=== PATIENT | male | born 1955 | race Two or more races ===

== ENCOUNTER 2019-05-12 09:51 | Emergency (ER) | payer MEDICARE, MEDICAID ==
[~2019-05-12] VITALS: Ht 180.3 cm; Wt 72.6 kg
[2019-05-12] MEDS ORDERED: cloNIDine HCL 0.1 MG TAB ONE (10:08)
[2019-05-12] MEDS ORDERED: cloNIDine HCL 0.1 MG TAB PO ONE (10:15)
[2019-05-12 10:21] VITALS: BP 179/91
[2019-05-12] MEDS ORDERED: HYDROmorphone HCL 2 MG/ML VL IM ONE (10:45)
[2019-05-12] MEDS ORDERED: ONDANSETRON ODT 4 MG TAB PO ONE (10:45)
== END 2019-05-12 13:00 | disposition home or self-care (01) ==
LOC: ER 09:51
DX: S42.201A Unspecified fracture of upper end of right humerus, initial encounter for closed fracture (principal); F17.210 Nicotine dependence, cigarettes, uncomplicated; W00.0XXA Fall on same level due to ice and snow, initial encounter; Y93.89 Activity, other specified; Y92.89 Other specified places as the place of occurrence of the external cause; Y99.8 Other external cause status
CPT/HCPCS: 29105; 73030; 73080; 96372; 99283; J1170; Q0162

== ENCOUNTER 2019-05-16 11:17 | Emergency (ER) | payer MEDICARE, MEDICAID ==
[~2019-05-16] VITALS: Ht 180.3 cm; Wt 72.6 kg
[2019-05-16 11:28] VITALS: BP 156/104
== END 2019-05-16 14:43 | disposition home or self-care (01) ==
LOC: ER 11:27
DX: M79.601 Pain in right arm (principal); Z76.0 Encounter for issue of repeat prescription; F17.210 Nicotine dependence, cigarettes, uncomplicated

== ENCOUNTER 2021-03-08 11:28 | Emergency (ER) | payer MEDICARE, MEDICAID ==
[~2021-03-08] VITALS: Ht 180.3 cm; Wt 72.6 kg
[2021-03-08] MEDS ORDERED: KETOROLAC TROMETH 60MG/2ML VIAL IM ONE (12:30)
[2021-03-08 12:45] VITALS: BP 141/84
== END 2021-03-08 13:15 | disposition home or self-care (01) ==
LOC: ER 11:28
DX: M51.35 Other intervertebral disc degeneration, thoracolumbar region (principal); G89.29 Other chronic pain; M54.50 Low back pain, unspecified; K21.9 Gastro-esophageal reflux disease without esophagitis; F17.210 Nicotine dependence, cigarettes, uncomplicated
CPT/HCPCS: 72070; 96372; 99283; J1885

== ENCOUNTER 2023-06-19 08:48 | Emergency (ER) | payer MEDICARE, MEDICAID ==
[~2023-06-19] VITALS: Ht 180.3 cm; Wt 79.0 kg
[2023-06-19 09:12] VITALS: PULSE 96; RESP 20; O2SAT 98
[2023-06-19] MEDS ORDERED: LIDOCAINE 2% JELLY 11ml (GLYDO) UR ONE (09:15)
[2023-06-19 10:02] LABS: Chloride 98 mmol/L (98-107); Potassium 3.7 mmol/L (3.5-5.1); Sodium 130 mmol/L (136-145)
[2023-06-19 10:03] LABS: Anion Gap 8 (5-15); Carbon Dioxide 24 mmol/L (20-30)
[2023-06-19 10:04] LABS: Calcium 9.1 mg/dL (8.5-10.1)
[2023-06-19 10:08] LABS: Glucose 108 mg/dL (74-106)
[2023-06-19 10:09] LABS: Basophils # (auto) 0 10 ^3/uL (0-0.2); Basophils % (auto) 0.2 % (0.0-2.0); Blood Urea Nitrogen 6 mg/dL (9-23); Eosinophils # (auto) 0 10 ^3/uL (0-0.8); Hematocrit 48.2 % (41.0-53.0); Hemoglobin 16.8 g/dL (13.5-17.5); Lymphocytes # (auto) 0.8 10 ^3/uL (0.4-5.4); Lymphocytes % (auto) 8.4 % (10.0-50.0); Mean Corpuscular Hemoglobin 32.8 pg (28.0-32.0); Mean Corpuscular Hgb Conc. 34.8 g/dL (32.0-36.0); Mean Corpuscular Volume 94.2 fL (80.0-100.0); Monocytes # (auto) 0.5 10 ^3/uL (0-1.3); Monocytes % (auto) 4.9 % (0.0-12.0); Neutrophils # (auto) 8.1 10 ^3/uL (1.6-8.6); Neutrophils % (auto) 86.5 % (37.0-80.0); Nucleated Red Blood Cells % 0.1 %; Red Blood Cells 5.12 10^6/uL (4.5-5.90); Red Cell Distribution Width 14.4 % (11.8-14.3); White Blood Cell 9.3 10^3/uL (4.4-10.8)
[2023-06-19 10:53] LABS: Urine Bacteria NONE SEEN /hpf (None Seen); Urine Blood TRACE /uL (Negative); Urine Budding Yeast MODERATE /hpf (None Seen); Urine Clarity Clear (Clear); Urine Color Yellow (Yellow); Urine Protein, UAD Negative (Negative); Urine Specific Gravity 1.011 (1.001-1.035); Urine Urobilinogen Normal (Negative); Urine WBC 34 /hpf (0 - 3); Urine pH 6.5 (5.0-8.0)
[2023-06-19] MEDS ORDERED: CEPH250C PO (11:12)
[2023-06-19] MEDS ORDERED: cefTRIAXone 1GM/50ML D5W 50 ML IV ONE (11:15)
[2023-06-19 12:47] VITALS: TEMP 98.7
[2023-06-19 14:02] VITALS: BP 153/88; PULSE 75; RESP 16; O2SAT 97
== END 2023-06-19 14:18 | disposition home or self-care (01) ==
LOC: ER 08:48
DX: N39.0 Urinary tract infection, site not specified (principal); R33.9 Retention of urine, unspecified; I10 Essential (primary) hypertension; K21.9 Gastro-esophageal reflux disease without esophagitis; E11.9 Type 2 diabetes mellitus without complications
CPT/HCPCS: 36415; 51702; 80048; 81001; 85025; 96365; 99285; J0696

== ENCOUNTER 2023-06-26 08:28 | Emergency (ER) | payer MEDICARE, MEDICAID ==
[~2023-06-26] VITALS: Ht 180.3 cm; Wt 69.6 kg
[~2023-06-26 08:28] MED LIST: CEPH250C PO
[2023-06-26 09:08] VITALS: BP 106/73; PULSE 74; RESP 16; TEMP 97.1; O2SAT 100
[2023-06-26] MEDS: LIDOCAINE 2% JELLY 11ml (GLYDO) UR ONE (09:33)
== END 2023-06-26 09:57 | disposition home or self-care (01) ==
LOC: ER 08:28
DX: T83.091A Other mechanical complication of indwelling urethral catheter, initial encounter (principal); I10 Essential (primary) hypertension; E11.9 Type 2 diabetes mellitus without complications; K21.9 Gastro-esophageal reflux disease without esophagitis; F17.210 Nicotine dependence, cigarettes, uncomplicated; Z79.899 Other long term (current) drug therapy
CPT/HCPCS: 51702

== ENCOUNTER 2023-07-23 04:39 | Emergency (ER) | payer MEDICARE, MEDICAID ==
[~2023-07-23] VITALS: Ht 180.3 cm; Wt 71.0 kg
[2023-07-23 07:28] LABS: Urine Bacteria FEW /hpf (None Seen); Urine Blood 1+ /uL (Negative); Urine Clarity Clear (Clear); Urine Color Yellow (Yellow); Urine Protein, UAD Negative (Negative); Urine Specific Gravity 1.014 (1.001-1.035); Urine Sperm PRESENT /hpf (None Seen); Urine Urobilinogen Normal (Negative); Urine WBC 21 /hpf (0 - 3); Urine pH 6.5 (5.0-8.0)
[2023-07-23] MEDS ORDERED: CIPR-173 PO (07:31)
[2023-07-23 07:41] VITALS: BP 120/75; PULSE 68; RESP 18; TEMP 97; O2SAT 98
== END 2023-07-23 08:05 | disposition home or self-care (01) ==
LOC: ER 04:39
DX: N39.0 Urinary tract infection, site not specified (principal); R33.9 Retention of urine, unspecified; E11.9 Type 2 diabetes mellitus without complications; K21.9 Gastro-esophageal reflux disease without esophagitis; I10 Essential (primary) hypertension; Z46.6 Encounter for fitting and adjustment of urinary device; Z87.891 Personal history of nicotine dependence
CPT/HCPCS: 51702; 81001

== ENCOUNTER 2023-09-07 17:43 | Emergency (ER) | payer MEDICARE, MEDICAID ==
[~2023-09-07] VITALS: Ht 180.3 cm; Wt 68.5 kg
[~2023-09-07 17:43] MED LIST changes: +CIPR-173 PO
[2023-09-07 18:00] VITALS: TEMP 99.1
[2023-09-07 22:39] LABS: Urine Bacteria None Seen /hpf (None Seen)
[2023-09-07 23:07] LABS: Urine Blood 3+ /uL (Negative); Urine Clarity Ex.Turbid (Clear); Urine Color Light-Red (Yellow); Urine Protein, UAD 2+ (Negative); Urine Specific Gravity 1.015 (1.001-1.035); Urine Urobilinogen Normal (Negative); Urine WBC 288 /hpf (0 - 3); Urine WBC Clumps PRESENT /hpf (None Seen); Urine pH 6.5 (5.0-9.0)
[2023-09-07] MEDS ORDERED: BACDST PO (23:14)
[2023-09-07] MEDS: cefTRIAXone SOD 1,000 MG VL IM ONE (23:34)
[2023-09-07 23:45] VITALS: BP 130/72; PULSE 80; RESP 18; O2SAT 97
== END 2023-09-07 23:51 | disposition home or self-care (01) ==
LOC: ER 17:43
DX: T83.098A Other mechanical complication of other urinary catheter, initial encounter (principal); N40.1 Benign prostatic hyperplasia with lower urinary tract symptoms; R33.8 Other retention of urine; E11.9 Type 2 diabetes mellitus without complications; K21.9 Gastro-esophageal reflux disease without esophagitis; I10 Essential (primary) hypertension; R56.9 Unspecified convulsions; N39.0 Urinary tract infection, site not specified; Z87.891 Personal history of nicotine dependence
CPT/HCPCS: 51702; 81001; 96372; 99284; J0696